=== PATIENT | male | born 1960 | race Caucasian/White ===

== ENCOUNTER → 2017-12-01 | Outpatient (CLI) | payer BC ==
[~2017-12-01] VITALS: Ht 193 cm; Wt 131.1 kg
[2017-12-01] VITALS (18 sets, daily range): BP systolic 136–165; BP diastolic 76–103; PULSE 57–85
[~2017-12-01] MED LIST: ALEVE 220MG220 MG PO; CLARITIN 1010 MG/TAB PO; PERCOCET 325 MG1 TA2 PO; RESTORIL30 MG PO
[2017-12-01 09:06] LABS: INR 1.1 (0.8-3.0); PROTHROMBIN TIME 12.5 SECONDS (9.7-12.8)
== END ==
LOC: COL.RAD 08:11
PROVIDERS: Surgery
DX: K76.9 Liver disease, unspecified (principal)
CPT/HCPCS: 27584

== ENCOUNTER 2017-12-02 16:11 | Inpatient (IN) | payer BC ==
[~2017-12-02] VITALS: Ht 193 cm; Wt 130.7 kg
[~2017-12-02 16:11] MED LIST changes: -PERCOCET 325 MG1 TA2 PO; -RESTORIL30 MG PO
[2017-12-09] VITALS (11 sets, daily range): BP systolic 112–162; BP diastolic 62–91; PULSE 73–110; TEMP 98–98.4
[2017-12-09] MEDS ORDERED: RESTORIL30 MG PO (11:56)
[2017-12-09 21:17] LABS: HEMATOCRIT 40.1 % (42.0-52.0); HEMOGLOBIN 13.6 g/dl (13.5-18.0)
[2017-12-10 04:22] VITALS: BP 118/64; PULSE 89; TEMP 98.5
[2017-12-10 06:26] LABS: BASO % 0.1 % (0.0-2.0); GRAN % 83.8 % (42.2-75.2); HEMATOCRIT 38.8 % (42.0-52.0); HEMOGLOBIN 12.8 g/dl (13.5-18.0); LYMPH # 1.2 (1.2-3.4); LYMPH % 7.6 % (20.0-51.0); MEAN CELL VOLUME 90 fl (80.0-100.0); MEAN CORPUSCULAR HEMOGLOBIN 30 pg (27.0-31.0); MEAN CORPUSCULAR HGB CONC 33 g/dl (33.0-37.0); MEAN PLATELET VOLUME 9.8 fl (7.4-10.4); MONO # 1.3 (0.1-0.6); MONO % 8.1 % (1.7-9.3); PLATELET COUNT 304 K/mm3 (130-400); RED BLOOD COUNT 4.32 M/mm3 (4.20-5.60); REDCELL DISTRIBUTION WIDTH-CV 13.6 % (11.5-14.5)
[2017-12-10 06:42] LABS: CALCIUM 8.3 mg/dL (8.4-10.2); CREATININE, serum 1.45 mg/dL (0.66-1.25); POTASSIUM 4.2 mmol/L (3.4-5.0)
[2017-12-10 07:35] VITALS: BP 125/69; PULSE 83; TEMP 98.2
[2017-12-10 11:29] VITALS: BP 139/79; PULSE 84; TEMP 98.3
[2017-12-10 17:04] VITALS: BP 127/73; PULSE 84; TEMP 98.4
[2017-12-10 19:32] VITALS: BP 147/83; PULSE 100; TEMP 98.2
[2017-12-10 23:24] VITALS: BP 141/71; PULSE 76; TEMP 98.4
[2017-12-11 04:14] VITALS: BP 142/76; PULSE 82; TEMP 98.1
[2017-12-11 06:02] LABS: HEMOGLOBIN 12.2 g/dl (13.5-18.0)
[2017-12-11 06:15] LABS: CREATININE, serum 1.14 mg/dL (0.66-1.25); POTASSIUM 3.6 mmol/L (3.4-5.0)
[2017-12-11 06:18] LABS: HEMATOCRIT 36.6 % (42.0-52.0)
[2017-12-11 08:04] VITALS: BP 146/79; PULSE 95; TEMP 98.6
[2017-12-11 12:13] VITALS: BP 144/77; PULSE 85; TEMP 98.6
[2017-12-11 15:34] VITALS: BP 149/79; PULSE 93; TEMP 99.1
[2017-12-11 20:34] VITALS: BP 146/77; PULSE 96; TEMP 99.2
[2017-12-11 23:31] VITALS: BP 130/72; PULSE 85; TEMP 98.3
[2017-12-12] VITALS (14 sets, daily range): BP systolic 116–158; BP diastolic 60–87; PULSE 68–102; TEMP 97.9–98.6
[2017-12-13 04:00] VITALS: BP 146/78; PULSE 80; TEMP 97.8
[2017-12-13 08:06] VITALS: BP 141/77; PULSE 72; TEMP 98.1
[2017-12-13 11:27] VITALS: BP 157/85; PULSE 82; TEMP 98.7
[2017-12-13 16:00] VITALS: BP 148/86; PULSE 75; TEMP 98.8
[2017-12-13] MEDS ORDERED: PERCOCET 325 MG1 TA2 PO (17:05)
== END 2017-12-13 18:05 | disposition home or self-care (01) | DRG 330 ==
LOC: SURG 12-09 10:31 → INPTSU 12-09 10:31 → SURG 12-09 12:30
PROVIDERS: Surgery
PROC: 0DJD4ZZ Inspection of Lower Intestinal Tract, Percutaneous Endoscopic Approach (ICD-10-PCS; 2017-12-09)
PROC: 0DTN0ZZ Resection of Sigmoid Colon, Open Approach (ICD-10-PCS; principal; 2017-12-09 12:30)
DX: C18.7 Malignant neoplasm of sigmoid colon (principal); C77.2 Secondary and unspecified malignant neoplasm of intra-abdominal lymph nodes; F17.220 Nicotine dependence, chewing tobacco, uncomplicated; Z53.31 Laparoscopic surgical procedure converted to open procedure
CPT/HCPCS: A4314; A9284; J0360; J0690; J1100; J1200; J1650; J2250; J2270; J2405; J2704; J2710; J3010; J7120

== ENCOUNTER → 2018-03-24 | Outpatient (CLI) | payer BC ==
[~2018-03-24] MED LIST changes: +FLONASEALLERGY NS; +PERCOCET 325 MG1 TA2 PO; +RESTORIL30 MG PO
== END ==
LOC: COL.VAS 13:29
DX: C18.7 Malignant neoplasm of sigmoid colon (principal); I82.C12 Acute embolism and thrombosis of left internal jugular vein; M79.89 Other specified soft tissue disorders

== ENCOUNTER → 2018-04-06 | Outpatient (CLI) | payer BC | LOC: COL.RAD 14:30 | DX: C18.7 Malignant neoplasm of sigmoid colon (principal); I82.C12 Acute embolism and thrombosis of left internal jugular vein; Z95.828 Presence of other vascular implants and grafts; Z86.718 Personal history of other venous thrombosis and embolism | CPT/HCPCS: Q9967 ==

== ENCOUNTER → 2018-09-16 | Outpatient (CLI) | payer BC ==
[~2018-09-16] VITALS: Ht 193 cm; Wt 136.9 kg
[2018-09-16] VITALS (18 sets, daily range): BP systolic 119–149; BP diastolic 67–89; PULSE 59–76
[~2018-09-16] MED LIST changes: +L-GLUTAMINE500 M5 PO; +MULTI VITAMINS1 TAB PO; +VITAMINC1000TA PO; +ZESTRIL 5MG5 MG PO; +ZOLOFT 50MG50 MG PO
[2018-09-16 12:40] LABS: INR 1.1 (0.8-3.0); PROTHROMBIN TIME 12.7 SECONDS (9.7-12.8)
--- NOTE | 2018-09-16 12:55 | NUR ---
PT BROUGHT INTO THE CT ROOM. PLACED ON THE TABLE, MONITORING EQUIPMENT PLACED ON PT. PT SCANNED
--- NOTE | 2018-09-16 13:15 | NUR ---
PT REPORTS PAIN FROM PROCEDURE
--- NOTE | 2018-09-16 13:35 | NUR ---
PT WAS GIVEN VERSED 1 MG AND FENTANYL 50 MCG
--- NOTE | 2018-09-16 13:45 | NUR ---
PROCEDURE IS COMPLETED. PT CLEANED UP AND BANDAIDE PLACE. PT ASSISTED INTO WHEELCHAIR AND TAKEN TO [facility]
--- NOTE | 2018-09-16 15:33 | NUR ---
PT IS TAKEN DOWN IN WHEELCHAIR ACCOMPANIED BY , PT LEAVES IN POV
== END ==
LOC: COL.RAD 11:49
PROVIDERS: Internal Medicine
DX: C18.7 Malignant neoplasm of sigmoid colon (principal); K76.89 Other specified diseases of liver
CPT/HCPCS: J2250; J3010; Q9967

== ENCOUNTER → 2018-12-24 | Outpatient (CLI) | payer BC | LOC: COL.RAD 09:39 | DX: C18.7 Malignant neoplasm of sigmoid colon (principal); K76.89 Other specified diseases of liver; Z90.49 Acquired absence of other specified parts of digestive tract | CPT/HCPCS: Q9967 ==

== ENCOUNTER → 2022-06-23 | Outpatient (CLI) | payer BC | LOC: COL.RAD 08:01 | DX: Z08 Encounter for follow-up examination after completed treatment for malignant neoplasm (principal); Z85.038 Personal history of other malignant neoplasm of large intestine; Z90.49 Acquired absence of other specified parts of digestive tract | CPT/HCPCS: Q9967 ==

== ENCOUNTER → 2023-07-29 | Outpatient (CLI) | payer BC ==
[~2023-07-29] MED LIST changes: +Iohexol 300 - 100 ML VIAL IV ONE; +NS 100 ML IV SCH
== END ==
LOC: COL.RAD 07:52
DX: K76.89 Other specified diseases of liver (principal); C18.7 Malignant neoplasm of sigmoid colon; Z98.890 Other specified postprocedural states
CPT/HCPCS: Q9967